=== PATIENT | male | born 1965 | race African-American/Black ===

== ENCOUNTER 2016-08-19 08:26 | Outpatient (CLI) | payer MEDICARE, MEDICAID ==
[~2016-08-19 08:26] MED LIST: AMIN30LI25 PO; CALC667C6 PO; DIGO125T PO; METO25TA PO; WARF1TAB6 PO
== END 2016-08-19 23:59 | disposition home health service (06) ==
LOC: WOU 08:26
PROVIDERS: ATTEND Podiatrist Foot & Ankle Surgery
DX: I70.261 Atherosclerosis of native arteries of extremities with gangrene, right leg (principal); L97.519 Non-pressure chronic ulcer of other part of right foot with unspecified severity; N18.6 End stage renal disease; Z99.2 Dependence on renal dialysis; Z94.0 Kidney transplant status; I70.202 Unspecified atherosclerosis of native arteries of extremities, left leg; Z89.431 Acquired absence of right foot
CPT/HCPCS: A6253; A6402; G0463

== ENCOUNTER 2016-08-26 10:28 | Outpatient (CLI) | payer MEDICARE, MEDICAID | END 2016-08-26 23:59 | disposition home health service (06) | LOC: WOU 10:28 | PROVIDERS: ATTEND Podiatrist Foot & Ankle Surgery | DX: I70.261 Atherosclerosis of native arteries of extremities with gangrene, right leg (principal); L97.511 Non-pressure chronic ulcer of other part of right foot limited to breakdown of skin; T81.31XD Disruption of external operation (surgical) wound, not elsewhere classified, subsequent encounter; I12.0 Hypertensive chronic kidney disease with stage 5 chronic kidney disease or end stage renal disease; N18.6 End stage renal disease; Z99.2 Dependence on renal dialysis; Z89.431 Acquired absence of right foot; Z83.3 Family history of diabetes mellitus | CPT/HCPCS: A6402; G0463 ==

== ENCOUNTER 2016-09-02 11:10 | Outpatient (CLI) | payer MEDICARE, MEDICAID ==
[~2016-09-02 11:10] MED LIST changes: +METO-302 PO; -METO25TA PO
== END 2016-09-02 23:59 | disposition home health service (06) ==
LOC: WOU 11:10
PROVIDERS: ATTEND Podiatrist Foot & Ankle Surgery
DX: T87.81 Dehiscence of amputation stump (principal); I70.261 Atherosclerosis of native arteries of extremities with gangrene, right leg; I12.0 Hypertensive chronic kidney disease with stage 5 chronic kidney disease or end stage renal disease; N18.6 End stage renal disease; Z99.2 Dependence on renal dialysis; T86.12 Kidney transplant failure
CPT/HCPCS: A6402; G0463

== ENCOUNTER 2016-09-09 14:46 | Outpatient (CLI) | payer MEDICARE, MEDICAID ==
[2016-09-09] MEDS ORDERED: CINA30TA PO (16:26)
[2016-09-09] MEDS ORDERED: SEVE800T8 PO (16:26)
== END 2016-09-09 23:59 | disposition home health service (06) ==
LOC: WOU 14:46
PROVIDERS: ATTEND Podiatrist Foot & Ankle Surgery
DX: T87.81 Dehiscence of amputation stump (principal); I70.261 Atherosclerosis of native arteries of extremities with gangrene, right leg; L97.519 Non-pressure chronic ulcer of other part of right foot with unspecified severity; I12.0 Hypertensive chronic kidney disease with stage 5 chronic kidney disease or end stage renal disease; N18.6 End stage renal disease; Z99.2 Dependence on renal dialysis; Z94.0 Kidney transplant status; Z83.3 Family history of diabetes mellitus
CPT/HCPCS: A6197; G0463

== ENCOUNTER 2016-09-09 15:44 | Inpatient (IN) | payer MEDICARE, MEDICAID ==
[~2016-09-09] VITALS: Ht 182.9 cm; Wt 78.0 kg
[2016-09-09] MEDS ORDERED: IV NS 0.9% 500 ML BAG IV ONE (16:00)
[2016-09-09] MEDS ORDERED: IV NS 0.9% 500 ML IV ONE (16:01)
[2016-09-09] MEDS ORDERED: IV SET PRIMARY PUMP SET 1 EA INFUS.SET MC ONE ×3 (16:01→21:56)
[2016-09-09 16:12] LABS: BASOPHILS # (AUTO) 0.1 /CMM (0.0-0.2); BASOPHILS % (AUTO) 1.7 % (0.0-2.0); DIFF TOTAL % 100 %; EOSINOPHILS # (AUTO) 0.1 /CMM (0.0-0.7); EOSINOPHILS % (AUTO) 1.1 % (0.0-6.0); HEMATOCRIT 40 % (39-51); HEMOGLOBIN 12.6 g/dL (13.5-17.5); LYMPHOCYTES # (AUTO) 0.6 /CMM (0.8-4.8); LYMPHOCYTES % (AUTO) 10.3 % (20.0-44.0); MEAN CORPUSCULAR HEMOGLOBIN 30 PG (26.0-33.0); MEAN CORPUSCULAR HGB CONC 32 g/dl (31.0-36.0); MEAN CORPUSCULAR VOLUME 96 fL (80-96); MONOCYTES # (AUTO) 0.6 /CMM (0.1-1.30); MONOCYTES % (AUTO) 11.2 % (2.0-12.0); NEUTROPHILS # (AUTO) 4.3 /CMM (1.8-8.9); NEUTROPHILS % (AUTO) 75.7 % (43.0-81.0); PLATELET COUNT (AUTO) 197 /CMM (150-450); RED BLOOD CELL COUNT(AUTO) 4.18 MIL/uL (4.5-6.0); WHITE BLOOD COUNT (AUTO) 5.8 K/uL (4.3-11.0)
[2016-09-09 16:19] LABS: CALCIUM, SERUM 10.6 mg/dL (8.5-10.1); CREATININE 7.3 mg/dL (0.6-1.3); POTASSIUM 5.3 mmol/L (3.5-5.1)
[2016-09-09] MEDS ORDERED: CINA30TA PO (16:26)
[2016-09-09] MEDS ORDERED: SEVE800T8 PO (16:26)
[2016-09-09 16:28] LABS: INR 1.42 (0.87-1.13); PROTHROMBIN TIME 14.9 SECS (9.5-12.7)
[2016-09-09 16:29] LABS: TROPONIN I 0.304 ng/mL (0.00-0.056)
[2016-09-09] MEDS ORDERED: DILTIAZEM HCL 25 MG IV ONE (16:47)
[2016-09-09] MEDS ORDERED: DILTIAZEM HCL 25 MG IV IV ONE (17:00)
[2016-09-09] MEDS ORDERED: MAG HYDROX/AL HYDROX/SIMETH 30 ML UDC PO PRN (18:00)
[2016-09-09] MEDS ORDERED: MAGNESIUM HYDROXIDE 30 ML UDC PO PRN (18:00)
[2016-09-09] MEDS ORDERED: Z GUARD REMEDY 2 OZ OINT TP PRN (18:00)
[2016-09-09] MEDS ORDERED: ONDANSETRON HCL/PF 4 MG/2 ML VIAL IVP PRN (18:00)
[2016-09-09] MEDS ORDERED: ACETAMINOPHEN 325 MG TABLET PO PRN (18:00)
[2016-09-09] MEDS ORDERED: ZOLPIDEM TARTRATE 5 MG TABLET PO PRN (18:00)
[2016-09-09] MEDS: HYDROCODONE/APAP 5/325MG 1 EACH TABLET PO PRN (18:54)
[2016-09-09] MEDS: SEVELAMER CARBONATE 800 MG TABLET PO SCH (18:55)
[2016-09-09] MEDS ORDERED: AMIODARONE 150 MG in IV D5W 100 ML IV ONE (19:00)
[2016-09-09] MEDS ORDERED: AMIODARONE 900 MG in IV D5W 482 ML IV PRN (19:00)
[2016-09-09 19:18] VITALS: BP 145/99
[2016-09-09] MEDS ORDERED: FEE PK DOSING 1 MIN EA MC ONE (19:40)
[2016-09-09 20:00] VITALS: BP 133/90
[2016-09-09] MEDS ORDERED: VANCOMYCIN 1 GM in IV D5W 250 ML IV ONE (20:00)
[2016-09-09] MEDS ORDERED: WARFARIN SODIUM 5 MG TABLET PO SCH (20:00)
[2016-09-09] MEDS ORDERED: HEPARIN SODIUM, PORCINE 5000 UNITS/1 ML VIAL IV ONE (20:30)
[2016-09-09] MEDS: ASPIRIN 325 MG TABLET PO SCH (20:42)
[2016-09-09] MEDS: DIGOXIN 0.125 MG TABLET PO SCH (22:02)
[2016-09-09] MEDS: HEPARIN INFUSION/D5W 500 ML IV PRN (22:04)
[2016-09-10] VITALS: BP_SYST 130; BP_SYST 140; BP_DIAS 55; BP_DIAS 76
[2016-09-10 04:00] VITALS: BP_SYST 131; BP_SYST 140; BP_DIAS 55; BP_DIAS 78
[2016-09-10 05:53] LABS: BASOPHILS % (AUTO) 0.2 % (0.0-2.0); DIFF TOTAL % 100 %; EOSINOPHILS # (AUTO) 0.2 /CMM (0.0-0.7); HEMATOCRIT 38 % (39-51); HEMOGLOBIN 11.9 g/dL (13.5-17.5); LYMPHOCYTES # (AUTO) 0.8 /CMM (0.8-4.8); LYMPHOCYTES % (AUTO) 11.3 % (20.0-44.0); MEAN CORPUSCULAR HEMOGLOBIN 30 PG (26.0-33.0); MEAN CORPUSCULAR HGB CONC 32 g/dl (31.0-36.0); MEAN CORPUSCULAR VOLUME 96 fL (80-96); MONOCYTES # (AUTO) 0.6 /CMM (0.1-1.30); MONOCYTES % (AUTO) 9.5 % (2.0-12.0); NEUTROPHILS # (AUTO) 5.1 /CMM (1.8-8.9); PLATELET COUNT (AUTO) 197 /CMM (150-450); RED BLOOD CELL COUNT(AUTO) 3.94 MIL/uL (4.5-6.0); WHITE BLOOD COUNT (AUTO) 6.8 K/uL (4.3-11.0)
[2016-09-10 06:03] LABS: CALCIUM, SERUM 10.6 mg/dL (8.5-10.1); PHOSPHORUS 7.9 mg/dL (2.5-4.9); POTASSIUM 5.9 mmol/L (3.5-5.1)
[2016-09-10 06:07] LABS: INR 1.28 (0.87-1.13); PROTHROMBIN TIME 13.9 SECS (9.5-12.7)
[2016-09-10 08:00] VITALS: BP 144/84
[2016-09-10] MEDS: PANTOPRAZOLE 40 MG TABLET.DR PO SCH (08:23)
[2016-09-10] MEDS: SEVELAMER CARBONATE 800 MG TABLET PO SCH ×3 (08:23→17:42)
[2016-09-10] MEDS: CINACALCET HCL 30 MG TABLET PO SCH (08:24)
[2016-09-10] MEDS: ASPIRIN 325 MG TABLET PO SCH (08:24)
[2016-09-10 12:00] VITALS: BP 148/71
[2016-09-10] MEDS: CADEXOMER IODINE 40 GM TUBE TP SCH (13:26)
[2016-09-10] MEDS: METOPROLOL SUCCINATE 25 MG TAB.SR.24H PO SCH (14:18)
[2016-09-10] MEDS: ATORVASTATIN 10 MG TABLET PO SCH (14:18)
[2016-09-10] MEDS: DILTIAZEM HCL 50 MG IV IV PRN ×2 (15:04→20:07)
[2016-09-10 16:00] VITALS: BP 140/98
[2016-09-10] MEDS: HYDROCODONE/APAP 5/325MG 1 EACH TABLET PO PRN (16:49)
[2016-09-10] MEDS: WARFARIN SODIUM 2 MG TABLET PO SCH (16:54)
[2016-09-10] MEDS: HEPARIN INFUSION/D5W 500 ML IV PRN (17:57)
[2016-09-10 20:00] VITALS: BP 150/104
[2016-09-10] MEDS ORDERED: VANCOMYCIN 500 MG in IV D5W 100 ML IV PRN (20:00)
[2016-09-11] VITALS (7 sets, daily range): BP systolic 121–180; BP diastolic 62–106
[2016-09-11] MEDS: DILTIAZEM HCL 50 MG IV IV PRN (00:24)
[2016-09-11] MEDS: HYDROCODONE/APAP 5/325MG 1 EACH TABLET PO PRN ×2 (03:09→16:13)
[2016-09-11 07:28] LABS: ALBUMIN 2.7 g/dL (3.4-5.0); BILIRUBIN,TOTAL 0.7 mg/dL (0.2-1.0); CALCIUM, SERUM 9.4 mg/dL (8.5-10.1); CREATININE 7.2 mg/dL (0.6-1.3); PHOSPHORUS 7.3 mg/dL (2.5-4.9); POTASSIUM 5.6 mmol/L (3.5-5.1); TOTAL PROTEIN, SERUM 7.6 g/dL (6.4-8.2)
[2016-09-11] MEDS: PANTOPRAZOLE 40 MG TABLET.DR PO SCH (07:30)
[2016-09-11 07:33] LABS: TROPONIN I 0.268 ng/mL (0.00-0.056)
[2016-09-11] MEDS: SEVELAMER CARBONATE 800 MG TABLET PO SCH ×4 (08:00→18:44)
[2016-09-11] MEDS: ASPIRIN 325 MG TABLET PO SCH ×2 (08:37→16:10)
[2016-09-11] MEDS: ATORVASTATIN 10 MG TABLET PO SCH (08:38)
[2016-09-11] MEDS: CINACALCET HCL 30 MG TABLET PO SCH ×2 (08:38→16:11)
[2016-09-11] MEDS: METOPROLOL SUCCINATE 25 MG TAB.SR.24H PO SCH (08:38)
[2016-09-11] MEDS: CADEXOMER IODINE 40 GM TUBE TP SCH (09:45)
[2016-09-11 15:48] LABS: INR 1.48 (0.87-1.13); PROTHROMBIN TIME 16.1 SECS (9.5-12.7)
[2016-09-11] MEDS ORDERED: DILTIAZEM HCL 25 MG IV IV PRN (16:30)
[2016-09-11] MEDS: WARFARIN SODIUM 2 MG TABLET PO SCH (18:43)
[2016-09-11] MEDS ORDERED: IV SET PRIMARY PUMP SET 1 EA INFUS.SET MC ONE (19:26)
[2016-09-11] MEDS ORDERED: AMIODARONE 150 MG in IV D5W 100 ML IV ONE (19:30)
[2016-09-11] MEDS ORDERED: AMIODARONE 900 MG in IV D5W 482 ML IV PRN (19:30)
[2016-09-11] MEDS: DIGOXIN 0.125 MG TABLET PO SCH (20:22)
[2016-09-12] VITALS: BP 118/93
[2016-09-12 04:00] VITALS: BP 158/36
[2016-09-12 08:00] VITALS: BP 100/60
[2016-09-12 08:06] LABS: CREATININE 6.2 mg/dL (0.6-1.3); POTASSIUM 5.2 mmol/L (3.5-5.1)
[2016-09-12] MEDS: ASPIRIN 325 MG TABLET PO SCH (08:43)
[2016-09-12] MEDS: CINACALCET HCL 30 MG TABLET PO SCH (08:46)
[2016-09-12] MEDS: PANTOPRAZOLE 40 MG TABLET.DR PO SCH (08:46)
[2016-09-12] MEDS: ATORVASTATIN 10 MG TABLET PO SCH (08:46)
[2016-09-12] MEDS: METOPROLOL SUCCINATE 25 MG TAB.SR.24H PO SCH (08:47)
[2016-09-12] MEDS: SEVELAMER CARBONATE 800 MG TABLET PO SCH ×2 (08:47→12:26)
[2016-09-12] MEDS: CADEXOMER IODINE 40 GM TUBE TP SCH (08:49)
[2016-09-12 08:57] VITALS: BP 100/60
[2016-09-12] MEDS: HYDROCODONE/APAP 5/325MG 1 EACH TABLET PO PRN (09:05)
[2016-09-12 12:00] VITALS: BP 108/60
[2016-09-12 12:25] VITALS: BP 108/60
[2016-09-12] MEDS ORDERED: AMIODARONE HCL 200 MG TABLET PO SCH (13:00)
== END 2016-09-12 15:00 | disposition left against medical advice (07) | DRG 871 ==
LOC: ER 15:52 → TELE-TD 18:17 → TELE1 09-10 10:30 → MEDSG1 09-12 13:07
PROVIDERS: ADMIT Internal Medicine; ATTEND Internal Medicine
DX: A41.9 Sepsis, unspecified organism (principal); I21.4 Non-ST elevation (NSTEMI) myocardial infarction; N18.6 End stage renal disease; I13.2 Hypertensive heart and chronic kidney disease with heart failure and with stage 5 chronic kidney disease, or end stage renal disease; Z99.2 Dependence on renal dialysis; Z79.01 Long term (current) use of anticoagulants; I48.91 Unspecified atrial fibrillation; I25.10 Atherosclerotic heart disease of native coronary artery without angina pectoris; E78.5 Hyperlipidemia, unspecified; Z89.421 Acquired absence of other right toe(s); E87.5 Hyperkalemia; D63.8 Anemia in other chronic diseases classified elsewhere; I07.1 Rheumatic tricuspid insufficiency; I27.2 Other secondary pulmonary hypertension; I35.2 Nonrheumatic aortic (valve) stenosis with insufficiency; I34.0 Nonrheumatic mitral (valve) insufficiency; I35.1 Nonrheumatic aortic (valve) insufficiency
CPT/HCPCS: 36415; 71010-TC; 80048-TC; 80053-TC; 80061-TC; 80162-TC; 80202-TC; 83735-TC; 84100-TC; 84484-TC; 85025-TC; 85610-TC; 85730-TC; 87081-TC; 93307-TC; A4606; J0282; J1644; J3370; J3490; J7040; J7060; Z7610

== ENCOUNTER 2016-09-23 10:50 | Outpatient (CLI) | payer MEDICARE, MEDICAID ==
[~2016-09-23 10:50] MED LIST changes: -AMIN30LI25 PO; -CALC667C6 PO; +CINA30TA PO; +SEVE800T8 PO
== END 2016-09-23 23:59 | disposition home health service (06) ==
LOC: WOU 10:50
PROVIDERS: ATTEND Podiatrist Foot & Ankle Surgery
DX: I70.261 Atherosclerosis of native arteries of extremities with gangrene, right leg (principal); L97.513 Non-pressure chronic ulcer of other part of right foot with necrosis of muscle; I12.0 Hypertensive chronic kidney disease with stage 5 chronic kidney disease or end stage renal disease; N18.6 End stage renal disease; Z99.2 Dependence on renal dialysis; Z83.3 Family history of diabetes mellitus; I70.221 Atherosclerosis of native arteries of extremities with rest pain, right leg
CPT/HCPCS: 11043; 11046; A6253; A6402 ×2

== ENCOUNTER 2016-09-30 09:18 | Outpatient (CLI) | payer MEDICARE, MEDICAID | END 2016-09-30 23:59 | disposition home or self-care (01) | LOC: WOU 09:18 | PROVIDERS: ATTEND Podiatrist Foot & Ankle Surgery | DX: I70.261 Atherosclerosis of native arteries of extremities with gangrene, right leg (principal); L97.513 Non-pressure chronic ulcer of other part of right foot with necrosis of muscle; T81.31XD Disruption of external operation (surgical) wound, not elsewhere classified, subsequent encounter; T86.12 Kidney transplant failure; I12.0 Hypertensive chronic kidney disease with stage 5 chronic kidney disease or end stage renal disease; N18.6 End stage renal disease; Z99.2 Dependence on renal dialysis; I48.91 Unspecified atrial fibrillation; Z79.01 Long term (current) use of anticoagulants; Z79.899 Other long term (current) drug therapy | CPT/HCPCS: 11043; A6253; A6402 ==

== ENCOUNTER 2016-10-07 10:56 | Outpatient (CLI) | payer MEDICARE, MEDICAID | END 2016-10-07 23:59 | disposition home health service (06) | DX: T87.53 Necrosis of amputation stump, right lower extremity (principal); I70.261 Atherosclerosis of native arteries of extremities with gangrene, right leg; L97.512 Non-pressure chronic ulcer of other part of right foot with fat layer exposed; R60.0 Localized edema; T81.31XD Disruption of external operation (surgical) wound, not elsewhere classified, subsequent encounter; I12.0 Hypertensive chronic kidney disease with stage 5 chronic kidney disease or end stage renal disease; N18.6 End stage renal disease; Z99.2 Dependence on renal dialysis; T86.12 Kidney transplant failure; Z83.3 Family history of diabetes mellitus | CPT/HCPCS: 11043; A6253; A6402 ==

== ENCOUNTER 2016-10-14 10:59 | Outpatient (CLI) | payer MEDICARE, MEDICAID | END 2016-10-14 23:59 | disposition home health service (06) | LOC: WOU 10:59 | PROVIDERS: ATTEND Podiatrist Foot & Ankle Surgery | DX: I70.268 Atherosclerosis of native arteries of extremities with gangrene, other extremity (principal); L97.513 Non-pressure chronic ulcer of other part of right foot with necrosis of muscle; M79.604 Pain in right leg; T81.31XD Disruption of external operation (surgical) wound, not elsewhere classified, subsequent encounter; I12.0 Hypertensive chronic kidney disease with stage 5 chronic kidney disease or end stage renal disease; N18.6 End stage renal disease; Z99.2 Dependence on renal dialysis; Z83.3 Family history of diabetes mellitus; T86.12 Kidney transplant failure; I48.2 Chronic atrial fibrillation; Z79.01 Long term (current) use of anticoagulants | CPT/HCPCS: 11043; 11046; 97605; A6402; J3490 ==

== ENCOUNTER 2016-10-21 11:04 | Outpatient (CLI) | payer MEDICARE, MEDICAID | END 2016-10-21 23:59 | disposition home health service (06) | LOC: WOU 11:04 | PROVIDERS: ATTEND Podiatrist Foot & Ankle Surgery | DX: I70.261 Atherosclerosis of native arteries of extremities with gangrene, right leg (principal); L97.513 Non-pressure chronic ulcer of other part of right foot with necrosis of muscle; I12.0 Hypertensive chronic kidney disease with stage 5 chronic kidney disease or end stage renal disease; N18.6 End stage renal disease; Z99.2 Dependence on renal dialysis; T86.12 Kidney transplant failure; Z83.3 Family history of diabetes mellitus; T81.31XD Disruption of external operation (surgical) wound, not elsewhere classified, subsequent encounter | CPT/HCPCS: 11043; 97605-TC; A6402 ==

== ENCOUNTER 2016-10-28 09:03 | Outpatient (CLI) | payer MEDICARE, MEDICAID | END 2016-10-28 23:59 | disposition home or self-care (01) | LOC: WOU 09:03 | PROVIDERS: ATTEND Podiatrist Foot & Ankle Surgery | DX: I70.261 Atherosclerosis of native arteries of extremities with gangrene, right leg (principal); L97.513 Non-pressure chronic ulcer of other part of right foot with necrosis of muscle; T81.31XD Disruption of external operation (surgical) wound, not elsewhere classified, subsequent encounter; I12.0 Hypertensive chronic kidney disease with stage 5 chronic kidney disease or end stage renal disease; N18.6 End stage renal disease; Z99.2 Dependence on renal dialysis; T86.12 Kidney transplant failure; Z89.431 Acquired absence of right foot | CPT/HCPCS: 11043; 11046; 97605; A6402 ×2 ==

== ENCOUNTER 2016-11-04 09:17 | Outpatient (CLI) | payer MEDICARE, MEDICAID | END 2016-11-04 23:59 | disposition home health service (06) | LOC: WOU 09:17 | PROVIDERS: ATTEND Podiatrist Foot & Ankle Surgery | DX: T87.81 Dehiscence of amputation stump (principal); I70.261 Atherosclerosis of native arteries of extremities with gangrene, right leg; L97.513 Non-pressure chronic ulcer of other part of right foot with necrosis of muscle; I12.0 Hypertensive chronic kidney disease with stage 5 chronic kidney disease or end stage renal disease; N18.6 End stage renal disease; Z99.2 Dependence on renal dialysis; T86.12 Kidney transplant failure; I48.91 Unspecified atrial fibrillation; Z79.01 Long term (current) use of anticoagulants | CPT/HCPCS: 11043; 97605-TC; A6402 ==

== ENCOUNTER 2016-11-15 13:40 | Outpatient (CLI) | payer MEDICARE, MEDICAID | END 2016-11-15 23:59 | disposition home or self-care (01) | LOC: WOU 13:40 | PROVIDERS: ATTEND Podiatrist Foot & Ankle Surgery | DX: T87.81 Dehiscence of amputation stump (principal); I70.261 Atherosclerosis of native arteries of extremities with gangrene, right leg; L97.513 Non-pressure chronic ulcer of other part of right foot with necrosis of muscle; I12.0 Hypertensive chronic kidney disease with stage 5 chronic kidney disease or end stage renal disease; N18.6 End stage renal disease; Z99.2 Dependence on renal dialysis; T86.12 Kidney transplant failure; I48.91 Unspecified atrial fibrillation; Z79.01 Long term (current) use of anticoagulants | CPT/HCPCS: 11043; 11046; A6197; A6253; A6402; J3490 ==

== ENCOUNTER 2016-11-22 13:30 | Outpatient (CLI) | payer MEDICARE, MEDICAID | END 2016-11-22 23:59 | disposition home health service (06) | LOC: WOU 13:30 | PROVIDERS: ATTEND Podiatrist Foot & Ankle Surgery | DX: T87.81 Dehiscence of amputation stump (principal); I70.232 Atherosclerosis of native arteries of right leg with ulceration of calf; L97.219 Non-pressure chronic ulcer of right calf with unspecified severity; I12.0 Hypertensive chronic kidney disease with stage 5 chronic kidney disease or end stage renal disease; N18.6 End stage renal disease; Z99.2 Dependence on renal dialysis; T86.12 Kidney transplant failure | CPT/HCPCS: 15275; A6402; J3490; Q4110 ==

== ENCOUNTER 2016-11-25 10:37 | Outpatient (CLI) | payer MEDICARE, MEDICAID | END 2016-11-25 23:59 | disposition home health service (06) | LOC: WOU 10:37 | PROVIDERS: ATTEND Podiatrist Foot & Ankle Surgery | DX: T87.81 Dehiscence of amputation stump (principal); I70.261 Atherosclerosis of native arteries of extremities with gangrene, right leg; L97.219 Non-pressure chronic ulcer of right calf with unspecified severity; Z89.431 Acquired absence of right foot; I12.0 Hypertensive chronic kidney disease with stage 5 chronic kidney disease or end stage renal disease; N18.6 End stage renal disease; Z99.2 Dependence on renal dialysis; T86.12 Kidney transplant failure | CPT/HCPCS: 97605-TC; A6197; A6402 ==

== ENCOUNTER 2016-12-02 11:21 | Outpatient (CLI) | payer MEDICARE, MEDICAID | END 2016-12-02 23:59 | disposition home health service (06) | LOC: WOU 11:21 | PROVIDERS: ATTEND Podiatrist Foot & Ankle Surgery | DX: I70.261 Atherosclerosis of native arteries of extremities with gangrene, right leg (principal); L97.211 Non-pressure chronic ulcer of right calf limited to breakdown of skin; I70.234 Atherosclerosis of native arteries of right leg with ulceration of heel and midfoot; L97.412 Non-pressure chronic ulcer of right heel and midfoot with fat layer exposed; I12.0 Hypertensive chronic kidney disease with stage 5 chronic kidney disease or end stage renal disease; N18.6 End stage renal disease; Z99.2 Dependence on renal dialysis; T86.12 Kidney transplant failure; Z83.3 Family history of diabetes mellitus; I48.91 Unspecified atrial fibrillation; Z79.01 Long term (current) use of anticoagulants; Z79.899 Other long term (current) drug therapy | CPT/HCPCS: 11042; 15275; A6402; J3490 ==

== ENCOUNTER 2016-12-06 13:38 | Outpatient (CLI) | payer MEDICARE, MEDICAID | END 2016-12-06 23:59 | disposition home health service (06) | LOC: WOU 13:38 | PROVIDERS: ATTEND Podiatrist Foot & Ankle Surgery | DX: I70.261 Atherosclerosis of native arteries of extremities with gangrene, right leg (principal); L97.211 Non-pressure chronic ulcer of right calf limited to breakdown of skin; T87.81 Dehiscence of amputation stump; Z89.431 Acquired absence of right foot; I12.0 Hypertensive chronic kidney disease with stage 5 chronic kidney disease or end stage renal disease; N18.6 End stage renal disease; Z99.2 Dependence on renal dialysis; T86.12 Kidney transplant failure | CPT/HCPCS: 11042; 97605-TC; A6253; A6402 ==

== ENCOUNTER 2016-12-13 13:15 | Outpatient (CLI) | payer MEDICARE, MEDICAID | END 2016-12-13 23:59 | disposition home health service (06) | LOC: WOU 13:15 | PROVIDERS: ATTEND Podiatrist Foot & Ankle Surgery | DX: I70.261 Atherosclerosis of native arteries of extremities with gangrene, right leg (principal); L97.211 Non-pressure chronic ulcer of right calf limited to breakdown of skin; T87.81 Dehiscence of amputation stump; Z89.431 Acquired absence of right foot; I12.0 Hypertensive chronic kidney disease with stage 5 chronic kidney disease or end stage renal disease; N18.6 End stage renal disease; Z99.2 Dependence on renal dialysis; T86.12 Kidney transplant failure; I48.91 Unspecified atrial fibrillation; Z79.01 Long term (current) use of anticoagulants | CPT/HCPCS: 11042; 15275; A6402; J3490 ==

== ENCOUNTER 2016-12-16 10:34 | Outpatient (CLI) | payer MEDICARE, MEDICAID | END 2016-12-16 23:59 | disposition home health service (06) | LOC: WOU 10:34 | PROVIDERS: ATTEND Podiatrist Foot & Ankle Surgery | DX: I70.261 Atherosclerosis of native arteries of extremities with gangrene, right leg (principal); L97.811 Non-pressure chronic ulcer of other part of right lower leg limited to breakdown of skin; L97.512 Non-pressure chronic ulcer of other part of right foot with fat layer exposed; T87.81 Dehiscence of amputation stump; Z89.431 Acquired absence of right foot; I12.0 Hypertensive chronic kidney disease with stage 5 chronic kidney disease or end stage renal disease; N18.6 End stage renal disease; Z99.2 Dependence on renal dialysis; I48.91 Unspecified atrial fibrillation; Z79.01 Long term (current) use of anticoagulants; T86.12 Kidney transplant failure; R05 Cough | CPT/HCPCS: 11042; 97605-TC; A6197; A6402; A6452; J3490 ==

== ENCOUNTER → 2016-12-23 | Outpatient (CLI) | payer MEDICARE, MEDICAID | END | disposition home health service (06) | LOC: WOU 13:45 | PROVIDERS: ATTEND Podiatrist Foot & Ankle Surgery | DX: I70.261 Atherosclerosis of native arteries of extremities with gangrene, right leg (principal); L97.512 Non-pressure chronic ulcer of other part of right foot with fat layer exposed; L97.811 Non-pressure chronic ulcer of other part of right lower leg limited to breakdown of skin; T87.81 Dehiscence of amputation stump; I70.232 Atherosclerosis of native arteries of right leg with ulceration of calf; L97.211 Non-pressure chronic ulcer of right calf limited to breakdown of skin; T86.12 Kidney transplant failure; I12.0 Hypertensive chronic kidney disease with stage 5 chronic kidney disease or end stage renal disease; N18.6 End stage renal disease; Z99.2 Dependence on renal dialysis; I48.91 Unspecified atrial fibrillation; Z79.01 Long term (current) use of anticoagulants | CPT/HCPCS: 15275; A6197; A6402; Q4131 ==

== ENCOUNTER 2016-12-30 09:00 | Outpatient (CLI) | payer MEDICARE, MEDICAID | END 2016-12-30 23:59 | disposition home health service (06) | LOC: WOU 09:00 | PROVIDERS: ATTEND Podiatrist Foot & Ankle Surgery | DX: T87.81 Dehiscence of amputation stump (principal); Z89.431 Acquired absence of right foot; I70.261 Atherosclerosis of native arteries of extremities with gangrene, right leg; L97.811 Non-pressure chronic ulcer of other part of right lower leg limited to breakdown of skin; I12.0 Hypertensive chronic kidney disease with stage 5 chronic kidney disease or end stage renal disease; N18.6 End stage renal disease; Z99.2 Dependence on renal dialysis; I48.91 Unspecified atrial fibrillation; Z79.01 Long term (current) use of anticoagulants | CPT/HCPCS: 11042; A6402 ==

== ENCOUNTER 2017-01-06 10:40 | Outpatient (CLI) | payer MEDICARE, MEDICAID | END 2017-01-06 23:59 | disposition home health service (06) | LOC: WOU 10:40 | PROVIDERS: ATTEND Podiatrist Foot & Ankle Surgery | DX: I70.232 Atherosclerosis of native arteries of right leg with ulceration of calf (principal); L97.211 Non-pressure chronic ulcer of right calf limited to breakdown of skin; I70.235 Atherosclerosis of native arteries of right leg with ulceration of other part of foot; L97.511 Non-pressure chronic ulcer of other part of right foot limited to breakdown of skin; T87.81 Dehiscence of amputation stump; I12.0 Hypertensive chronic kidney disease with stage 5 chronic kidney disease or end stage renal disease; N18.6 End stage renal disease; Z99.2 Dependence on renal dialysis; T86.12 Kidney transplant failure; I48.91 Unspecified atrial fibrillation; Z79.01 Long term (current) use of anticoagulants | CPT/HCPCS: 11042; 15275; A6402 ==

== ENCOUNTER 2017-01-20 10:05 | Outpatient (CLI) | payer MEDICARE, MEDICAID | END 2017-01-20 23:59 | disposition home health service (06) | LOC: WOU 10:05 | PROVIDERS: ATTEND Podiatrist Foot & Ankle Surgery | DX: T87.81 Dehiscence of amputation stump (principal); I70.261 Atherosclerosis of native arteries of extremities with gangrene, right leg; L97.211 Non-pressure chronic ulcer of right calf limited to breakdown of skin; L97.512 Non-pressure chronic ulcer of other part of right foot with fat layer exposed; I12.0 Hypertensive chronic kidney disease with stage 5 chronic kidney disease or end stage renal disease; N18.6 End stage renal disease; Z99.2 Dependence on renal dialysis; T86.12 Kidney transplant failure | CPT/HCPCS: 11042; A6402 ==

== ENCOUNTER 2017-01-27 10:30 | Outpatient (CLI) | payer MEDICARE, MEDICAID | END 2017-01-27 23:59 | disposition home or self-care (01) | LOC: WOU 10:30 | PROVIDERS: ATTEND Podiatrist Foot & Ankle Surgery | DX: I70.261 Atherosclerosis of native arteries of extremities with gangrene, right leg (principal); L97.512 Non-pressure chronic ulcer of other part of right foot with fat layer exposed; L97.211 Non-pressure chronic ulcer of right calf limited to breakdown of skin; T81.31XD Disruption of external operation (surgical) wound, not elsewhere classified, subsequent encounter; I12.0 Hypertensive chronic kidney disease with stage 5 chronic kidney disease or end stage renal disease; N18.6 End stage renal disease; Z99.2 Dependence on renal dialysis; T86.12 Kidney transplant failure; I48.91 Unspecified atrial fibrillation; Z79.01 Long term (current) use of anticoagulants; Z79.899 Other long term (current) drug therapy | CPT/HCPCS: 11042; 15271; A6402; Q4131 ==

== ENCOUNTER 2017-01-31 12:10 | Outpatient (CLI) | payer MEDICARE, MEDICAID | END 2017-01-31 23:59 | disposition home health service (06) | LOC: WOU 12:10 | PROVIDERS: ATTEND Podiatrist Foot & Ankle Surgery | DX: T81.31XD Disruption of external operation (surgical) wound, not elsewhere classified, subsequent encounter (principal); I70.235 Atherosclerosis of native arteries of right leg with ulceration of other part of foot; L97.211 Non-pressure chronic ulcer of right calf limited to breakdown of skin; L97.512 Non-pressure chronic ulcer of other part of right foot with fat layer exposed; I70.238 Atherosclerosis of native arteries of right leg with ulceration of other part of lower leg; I12.0 Hypertensive chronic kidney disease with stage 5 chronic kidney disease or end stage renal disease; N18.6 End stage renal disease; Z99.2 Dependence on renal dialysis; T86.12 Kidney transplant failure; I48.91 Unspecified atrial fibrillation; Z79.01 Long term (current) use of anticoagulants; Z79.899 Other long term (current) drug therapy | CPT/HCPCS: 15271; A6402; Q4131 ==

== ENCOUNTER 2017-02-10 11:29 | Outpatient (CLI) | payer MEDICARE, MEDICAID | END 2017-02-10 23:59 | disposition home health service (06) | LOC: WOU 11:29 | PROVIDERS: ATTEND Podiatrist Foot & Ankle Surgery | DX: T81.31XD Disruption of external operation (surgical) wound, not elsewhere classified, subsequent encounter (principal); I70.234 Atherosclerosis of native arteries of right leg with ulceration of heel and midfoot; L97.512 Non-pressure chronic ulcer of other part of right foot with fat layer exposed; L97.211 Non-pressure chronic ulcer of right calf limited to breakdown of skin; I70.232 Atherosclerosis of native arteries of right leg with ulceration of calf; I12.0 Hypertensive chronic kidney disease with stage 5 chronic kidney disease or end stage renal disease; N18.6 End stage renal disease; Z99.2 Dependence on renal dialysis; T86.12 Kidney transplant failure; Z89.431 Acquired absence of right foot | CPT/HCPCS: 11042; A6402 ==

== ENCOUNTER 2017-02-24 11:17 | Outpatient (CLI) | payer MEDICARE, MEDICAID | END 2017-02-24 23:59 | disposition home or self-care (01) | LOC: WOU 11:17 | PROVIDERS: ATTEND Podiatrist Foot & Ankle Surgery | DX: I70.261 Atherosclerosis of native arteries of extremities with gangrene, right leg (principal); L97.211 Non-pressure chronic ulcer of right calf limited to breakdown of skin; I12.0 Hypertensive chronic kidney disease with stage 5 chronic kidney disease or end stage renal disease; N18.6 End stage renal disease; Z99.2 Dependence on renal dialysis; T86.12 Kidney transplant failure; I48.91 Unspecified atrial fibrillation; Z79.01 Long term (current) use of anticoagulants; Z79.899 Other long term (current) drug therapy | CPT/HCPCS: 15271; A6402 ==

== ENCOUNTER 2017-03-03 11:36 | Outpatient (CLI) | payer MEDICARE, MEDICAID | END 2017-03-03 23:59 | disposition home health service (06) | LOC: WOU 11:36 | PROVIDERS: ATTEND Podiatrist Foot & Ankle Surgery | DX: I70.232 Atherosclerosis of native arteries of right leg with ulceration of calf (principal); L97.211 Non-pressure chronic ulcer of right calf limited to breakdown of skin; I12.0 Hypertensive chronic kidney disease with stage 5 chronic kidney disease or end stage renal disease; N18.6 End stage renal disease; Z99.2 Dependence on renal dialysis; T86.12 Kidney transplant failure; M79.604 Pain in right leg; Z89.431 Acquired absence of right foot; Z83.3 Family history of diabetes mellitus | CPT/HCPCS: 15271; A6402 ==

== ENCOUNTER 2017-03-10 10:15 | Outpatient (CLI) | payer MEDICARE, MEDICAID | END 2017-03-10 23:59 | disposition home or self-care (01) | LOC: WOU 10:15 | PROVIDERS: ATTEND Podiatrist Foot & Ankle Surgery | DX: I70.232 Atherosclerosis of native arteries of right leg with ulceration of calf (principal); L97.211 Non-pressure chronic ulcer of right calf limited to breakdown of skin; T86.12 Kidney transplant failure; I12.0 Hypertensive chronic kidney disease with stage 5 chronic kidney disease or end stage renal disease; N18.6 End stage renal disease | CPT/HCPCS: A6402; G0463 ==

== ENCOUNTER 2017-04-07 11:49 | Outpatient (CLI) | payer MEDICARE, MEDICAID | END 2017-04-07 23:59 | disposition home or self-care (01) | LOC: WOU 11:49 | PROVIDERS: ATTEND Podiatrist Foot & Ankle Surgery | DX: I70.232 Atherosclerosis of native arteries of right leg with ulceration of calf (principal); L97.211 Non-pressure chronic ulcer of right calf limited to breakdown of skin; T81.31XD Disruption of external operation (surgical) wound, not elsewhere classified, subsequent encounter; I12.0 Hypertensive chronic kidney disease with stage 5 chronic kidney disease or end stage renal disease; N18.6 End stage renal disease; T86.12 Kidney transplant failure; Z79.899 Other long term (current) drug therapy | CPT/HCPCS: 11042; A4606; A6402; Z7610 ==

== ENCOUNTER 2017-04-25 13:37 | Outpatient (CLI) | payer MEDICARE, MEDICAID | END 2017-04-25 23:59 | disposition home or self-care (01) | LOC: WOU 13:37 | PROVIDERS: ATTEND Podiatrist Foot & Ankle Surgery | DX: I70.222 Atherosclerosis of native arteries of extremities with rest pain, left leg (principal); Z89.431 Acquired absence of right foot; T86.12 Kidney transplant failure | CPT/HCPCS: A6402; G0463 ==